=== PATIENT | female | born 2000 | race Caucasian/White ===

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

== ENCOUNTER 2020-08-16 08:00 | Outpatient (CLI) | payer OTHER ==
[2020-08-16 16:21] LABS: PROLACTIN 7.3 ng/mL
[2020-08-16 16:44] LABS: FOLLICLE STIMULATING HORMONE 4.97 mIU/mL
[2020-08-17 06:19] LABS: ESTRADIOL <15 pg/mL
[2020-08-19 00:38] LABS: DHEA SULFATE 233 mcg/dL (51-321)
== END 2020-08-16 23:59 | disposition home or self-care (01) ==
LOC: LAB 08:00
PROVIDERS: ATTEND Obstetrics & Gynecology
DX: N91.5 Oligomenorrhea, unspecified (principal); E03.9 Hypothyroidism, unspecified
CPT/HCPCS: 36415; 81599; 82627; 82670; 83001; 83498; 84146; 84403; 84443

== ENCOUNTER 2020-08-25 16:12 | Outpatient (CLI) | payer OTHER ==
--- NOTE | 2020-08-26 00:48 | Ultrasound Report ---
PROCEDURE: Pelvic w/Transvaginal INDICATIONS: OLIGOMENORRHEA TECHNIQUE: Real-time scanning was performed of the pelvic organs, with image documentation. Additional endovagi nal scanning was necessary due to incomplete visualization of the adnexal and endometrial structures by transabdominal scanning. COMPARISON: None. FINDINGS: No pathologic free abdominal or pelvic fluid. Uterus: Uterus is normal in size at 5.5 x 2.4 x 3.6 cm. The endometrium measures 3 mm in combined t hickness. Homogeneous uterine echotexture. Ovaries: Right ovary measures 2.0 x 2.1 x 2.1 cm with ovarian volume of 4.4 mL. Left ovary measures 2.8 x 2.4 x 2.5 cm with ovarian volume of 8.9 mL. No suspicious ovarian or adnexal mass lesions. IMPRESSION: Unremarkable pelvic ultrasound. No acute sonographic abnormalities. Reviewed by: Venkata Sanderson MD on 08/26/2020 12:46 AM PST Approved by: Venkata Sanderson MD on 08/26/2020 12:46 AM PST Station ID: [id number]
== END 2020-08-25 16:13 | disposition home or self-care (01) ==
LOC: DI 16:12
PROVIDERS: ATTEND Obstetrics & Gynecology
DX: N91.5 Oligomenorrhea, unspecified (principal)

== ENCOUNTER 2020-09-06 15:47 | Outpatient (CLI) | payer OTHER ==
[2020-09-06 16:32] LABS: THYROID STIMULATING HORMONE 2.96 uIU/mL (0.34-5.60)
[2020-09-06 16:34] LABS: FREE T4 (FREE THYROXINE) 0.83 ng/dL (0.58-1.64)
[2020-09-06 16:38] LABS: PROLACTIN 7.75 ng/mL
[2020-09-06 16:59] LABS: FOLLICLE STIMULATING HORMONE 8.62 mIU/mL
== END 2020-09-06 15:48 | disposition home or self-care (01) ==
LOC: LAB 15:47
PROVIDERS: ATTEND Obstetrics & Gynecology
DX: N91.5 Oligomenorrhea, unspecified (principal); E03.9 Hypothyroidism, unspecified
CPT/HCPCS: 36415; 82670; 83001; 84146; 84439; 84443

== ENCOUNTER 2020-10-23 13:57 | Outpatient (CLI) | payer OTHER ==
[2020-10-23 14:47] LABS: THYROID STIMULATING HORMONE 1.6 uIU/mL (0.34-5.60)
[2020-10-23 14:52] LABS: PROLACTIN 6.2 ng/mL
[2020-10-23 15:15] LABS: FOLLICLE STIMULATING HORMONE 11.27 mIU/mL
== END 2020-10-23 13:58 | disposition home or self-care (01) ==
LOC: LAB 13:57
PROVIDERS: ATTEND Obstetrics & Gynecology
DX: N91.5 Oligomenorrhea, unspecified (principal); E03.9 Hypothyroidism, unspecified
CPT/HCPCS: 36415; 81599; 82670; 83001; 83498; 84146; 84443

== ENCOUNTER 2020-11-22 08:18 | Outpatient (CLI) | payer OTHER ==
[2020-11-22 08:51] LABS: ALBUMIN 4.8 g/dL (3.2-5.5); ALBUMIN/GLOBULIN RATIO 2.2 (1.0-2.2); BILIRUBIN,TOTAL 0.7 mg/dL (0.2-1.0); CALCIUM 9.5 mg/dL (8.5-10.3); POTASSIUM 4.3 mmol/L (3.5-5.0)
[2020-11-22 11:53] LABS: ESTIMATED AVERAGE GLUCOSE 97 mg/dL (70-100)
== END 2020-11-22 08:19 | disposition home or self-care (01) ==
LOC: LAB 08:18
PROVIDERS: ATTEND Obstetrics & Gynecology
DX: E23.3 Hypothalamic dysfunction, not elsewhere classified (principal); Z13.811 Encounter for screening for lower gastrointestinal disorder; N91.5 Oligomenorrhea, unspecified; Z13.1 Encounter for screening for diabetes mellitus
CPT/HCPCS: 36415; 80053; 81599; 82784; 83036; 83516; 86255

== ENCOUNTER 2020-12-13 07:42 | Outpatient (CLI) | payer OTHER ==
[~2020-12-13 07:42] MED LIST: GADOBUTROL 10 MMOL/10 ML VIAL ONE
--- NOTE | 2020-12-13 10:28 | MRI Report ---
PROCEDURE: Brain W/WO INDICATIONS: Primary hypothalamic insufficiency CONTRAST: IV CONTRAST: Gadavist ml: 6.9 TECHNIQUE: Noncontrast axial T1 spin echo, axial T2 fast spin echo, sagittal and axial FLAIR, coronal T2 fast sp in echo, axial gradient echo, axial diffusion and ADC through the brain. After the administration of contrast, axial and coronal T1 spin echo with fat saturation through the brain. COMPARISON: None. FINDINGS: Image quality: Excellent. Pituitary gland: Normal size and signal intensity of the pituitary gland. Normal position of T1 short ening in the neurohypophysis. There is no pituitary gland mass identified. No abnormal enhancement of the pituitary after IV contrast demonstration. Normal size of the sella turcica. Suprasellar structu res are normal in appearance. CSF spaces: Basal cisterns are patent. No extra-axial fluid collections. Ventricles are normal in size and shape. Brain: No midline shift. No intracranial bleeds or masses. No abnormal intracranial enhancement. There is cerebral volume loss for age. There is periventricular white matter chronic small vessel is chemic change. The brainstem appears normal. Diffusion-weighted images demonstrate no acute ischemi c insults. No chronic ischemic insults. Normal intravascular flow voids are present. Skull and face: Calvarial marrow is normal in signal. Orbits appear normal. Sinuses: Sinuses and mastoids appear clear. IMPRESSION: No pituitary adenoma or other pituitary pathology. Normal appearance of the hypothalamus and suprasellar structures. Reviewed by: Natan Christy MD on 12/13/2020 10:26 AM PDT Approved by: Natan Christy MD on 12/13/2020 10:26 AM PDT Station ID: [id number]
[2020-12-13] MEDS: GADOBUTROL 10 MMOL/10 ML VIAL IVP ONE (16:48)
== END 2020-12-13 07:43 | disposition home or self-care (01) ==
LOC: DI 07:42
PROVIDERS: ATTEND Obstetrics & Gynecology
DX: E23.3 Hypothalamic dysfunction, not elsewhere classified (principal)
CPT/HCPCS: 70553; A9585